=== PATIENT | female | born 1970 | race Caucasian/White ===

== ENCOUNTER → 2017-01-14 | Day surgery (SDC) | payer OTHER ==
[~2017-01-14] VITALS: Ht 165.1 cm; Wt 84.0 kg
[2017-01-14] VITALS (12 sets, daily range): BP systolic 89–103; BP diastolic 42–68; PULSE 50–76; RESP 14–19; O2SAT 95–100
[~2017-01-14] MED LIST: Bupivacaine-MPF 0.5% W/EPI 30 mL Inj INFILTRATE ONE; Dexamethasone 4 mg/mL Inj IVPUSH PRN; Dexamethasone 4 mg/mL Inj ONE; EPHEDrine Sulfate 50 mg/mL Inj IVPUSH PRN; EPHEDrine/NS 5 mg/mL 5 mL Syringe ONE; Glycopyrrolate 0.2 MG/ML 1mL Inj ONE; HYDROmorphone 1 mg/mL Inj IVPUSH PRN; Lactated Ringer's 1,000 ML IV ONE; Lactated Ringer's 1,000 ML IV SCH; Lactated Ringer's 500 ML IV PRN; MetoCLOpramide 5 mg/mL 2 mL Inj IVPUSH PRN; MetoCLOpramide 5 mg/mL 2 mL Inj ONE; NORE-101 PO; Neostigmine 1 mg/mL 10 mL Inj ONE; Ondansetron 2 mg/mL 2 mL Inj IVPUSH PRN; Phenylephrine 10,000 mCg/mL Inj IVPUSH PRN; Propofol 10,000 mCg/mL 20 mL Inj ONE; Rocuronium 10 mg/mL 5 mL Inj ONE; VALA500T38 PO; fentaNYL-PF 50 mCg/mL 2 mL Inj IVPUSH PRN; fentaNYL-PF 50 mCg/mL 2 mL Inj ONE; oxyCODONE-Acetamin 5-325 mg Tablet PO PRN
[2017-01-14] MEDS: Lactated Ringer's 1,000 ML IV SCH ×2 (05:31→07:32)
--- NOTE | 2017-01-14 08:49 | PCM.ANEP1 ---
Post Anesthesia PACU Phase 1 Assessment Vital Signs Vital Signs Date Time Temp Pulse Resp B/P Pulse Ox O2 Delivery O2 Flow Rate FiO2 01/14/17 08:45 36.2 52 18 91/54 95 Room Air 01/14/17 08:40 50 18 93/42 95 Room Air 01/14/17 08:35 57 17 95/46 97 Room Air 01/14/17 08:30 58 16 101/58 100 Room Air 01/14/17 08:27 36.4 58 19 97/57 100 Room Air 01/14/17 05:51 36.5 75 16 103/68 96 Room Air Anesthetic Administered: GA Level of Alertness: Awake, talking SOLANO's with Equal Strength: Yes Pain: No Nausea or Vomiting: No CV Function & Hydration Stable: Yes Airway Device: Oxygen Delivery: Room Air Lungs: Clear to Auscultation Dermatome Level: Full Sensation PACU Phase 2 Assessment Complications: No Patient Instructions Provided: N/A Elia Kwong MD Jan 14, 2017 08:49
--- NOTE | 2017-01-14 11:24 | DIS ---
[address] [address] DISCHARGE SUMMARY PATIENT: CIERRA MCKINNEY : 1970 MR#: [id number] ADMIT: 01/14/2017 JOB ID: [id number] DIS: HISTORY AND HOSPITAL COURSE: This is a 46-year-old female, who came in today for a scheduled laparoscopy and bilateral salpingectomy. The procedure was not complicated. The patient was transferred to recovery room after procedure. Plan to discharge the patient home. The patient was instructed that if there is heavy vaginal bleeding, severe abdominal pain, foul-smelling discharge, or fever more than 100.4, she needs to call the office or go to the ED for evaluation. Motrin 600 mg 30 pills prescribed and Percocet 5/325, 10 pills prescribed for postop pain. Patient is instructed to make an appointment two weeks after the procedure for followup.
--- NOTE | 2017-01-14 11:59 | OP ---
[address] [address] OPERATIVE REPORT PATIENT: CIERRA MCKINNEY : 1970 MR#: [id number] ADMIT: 01/14/2017 JOB ID: [id number] DATE OF SURGERY: 01/14/2017 SURGEON: Wendy Mccoy MD. FINISHED CLOTH CHECKER: Dano Alba MD for this procedure LORRY WEIGHER physician investigative assistant is necessary for completing the procedure for exposure. PREOPERATIVE DIAGNOSIS(ES): A 46-year-old female, desire for permanent sterilization. POSTOPERATIVE DIAGNOSIS(ES): A 46-year-old female, desire for permanent sterilization. INDICATION FOR PROCEDURE: A 46-year-old female, desire for permanent sterilization. This is a 46-year-old female, previously using OCD for control and she strongly desires for permanent sterilization with bilateral salpingectomy. She understood there is a long reversible method available, but the tubal ligation was the method she decided to have. She understood there is risk of infection, bleeding, injury to the organs around including the ovaries, uterus, bladder, ureters, major vessels and nerves and bowels. Informed consent signed. PROCEDURE IN DETAIL: The patient was transferred to the operating room. After anesthesia was noted to be adequate, she was placed in dorsal lithotomy position. She was prepared and draped in normal sterile fashion. Speculum inserted to vagina to expose the cervix. The cervix was grasped by single tooth tenaculum. An Everman manipulator was inserted for uterine manipulation. At this time, a Veress needle was inserted. After it confirmed appropriate insertion, CO2 gas inserted to perform pneumoperitoneum and then the Veress needle removed. A 5 mm incision placed at umbilicus and 5 mm trocar inserted. The pelvis and the abdominal cavity was examined with no abnormal findings. The uterus was normal size. Bilateral ovaries and tubes have no abnormal finding. Then two 5 mm incisions were placed at the bilateral lower abdomen and another two 5 mm trocar inserted. Then at this time, the right tube was grasped and then the LigaSure instrument was used to coagulate the cut and of the left salpinx and then the right tube was removed. The same procedure was performed at the left side. After procedure hemostasis confirmed. All instruments removed from the abdomen and the 5 mm incision was closed by 4-0 Monocryl subcutaneously. The patient tolerated the procedure well. All instrument, needles, laps and gauzes counted correct twice. The patient was transferred to recovery room in a stable condition.
--- NOTE | 2017-01-17 13:08 | PCM.HPANE ---
Patient Data Surgeon Admitting Provider: Attending Provider:Wendy Mccoy MD Primary Care Physician:Teresa Other Provider:Emre Alejo Anesthesia Reason for Visit Family Planning Ht/WT & BMI Height (Feet): 5 Height (Inches): 5.00 Weight (Kilograms): 84.0 Body Mass Index 30.00 Allergies Coded Allergies: Penicillins (Verified Allergy, Severe, HIVES, SOB, 01/07/17) Sulfa (Sulfonamide Antibiotics) (Verified Allergy, Severe, HIVES, 01/07/17) oxycodone (Verified Allergy, Unknown, UNKNOWN, 01/07/17) hydrocodone (Verified Adverse Reaction, Severe, N&V, 01/07/17) Past Anesthesia History Anesthesia History: Denies:: Anesthesia Reactions Diabetes History Hx Diabetes?: No MRSA MRSA: No Medications Home Meds Incl Beta Leena: No Reported Medications Valacyclovir 500 Mg Zcilpy992 Mg PO BID PRN PRN X 3 DAYS 01/07/17 Noreth A-Et Estra/Fe Fumarate (Loestrin Fe 1.5-30 Tablet)1 Each Tablet1 Each PO DAILY #1 PKG Ref 0 01/07/17 History History of ENT Problems?: No HEENT History: Denies:: Abnormal Airway Cataracts Difficult Intubation Dysphagia Glaucoma Hearing Problem Sinus Problem TMJ Denture Type: None Partial- Lower Teeth Condition: Within Normal Limits Hx of Heart Problems?: No Cardiovascular History: Denies:: Heart Murmur Hypertension Hx of Respiratory Problem?: No Respiratory History: Denies:: Use of C-PAP Machine Hx Neurologic Problems?: Yes Neurological History: Positive for:: Headaches Other Neurological Pertinent: HX OF HSV Hx of GI Problems?: Yes Hx of Problems?: No Female Hx: Denies:: Currently Skin History: Positive for:: History Skin Disorders? (C/OF HAIR LOSS) Denies:: Pressure Ulcers Hx Musculoskeletal Problems?: No Hx of Psycho/Social Problems?: No Hx Surgeries?: Yes (COLPOSCOPY W/ BX & ENDOCERVICAL CURETTAGE) Hx Any Other Health Problems?: Yes Other History: Denies:: Cancer Endocrine Disease Hospitalization Thyroid Disease History Blood Transfusions: Denies:: Blood Transfusions Hx Diabetes: No Have You Smoked inLast 12 mo: No Stop/Bang S-Snoring: Do You Snore Loudly: No T-Tired: feel tired, fatigued: No O-Obsered: Observed not breath: No P-Blood Pressure: treated: No B- Body Mass Index > 35 kg/m2: No A- Age over 50: No N- Neck Large Circumference: No G- Gender Male: No LEAH Total Score: 0 Risk Assessment Category Category 1A: Patient has history of documented sleep apnea, and HAS NOT received any narcotic, sedative or anesthesia administration during this stay. Category 1B: Patient has history of documented sleep apnea, and HAS received any narcotic , sedative or anesthesia administration during this stay Category 2: Patient has SUSPECTED Obstructive Sleep Apnea, and HAS received any narcotic , sedative or anesthesia administration during this stay. Category 3: Patient has SUSPECTED Obstructive Sleep Apnea and HAS NOT received narcotic, sedative or anesthesia administration during this stay. Category 4: Outpatient in Procedural Areas with known sleep apnea or who screen positive for High Risk via the STOP/BANG questionnaire. Exam Exam Vital Signs Vital Signs Date Time Temp Pulse Resp B/P Pulse Ox O2 Delivery O2 Flow Rate FiO2 01/14/17 05:51 36.5 75 16 103/68 96 Room Air General Appearance: Alert, Oriented X3, Cooperative, No Acute Distress HEENT/AIRWAY: MP 2 Lungs: Clear to Auscultation, Normal Air Movement Heart: Exam Unremarkable, Regular Rate/Rhythm, No Murmurs/Rubs/Gallops Meds/Labs/Diagnostics Admission Meds Current Medications Lactated Ringer's (Lr) 1,000 ml @ 120 mls/hr [id number] IV Last administered on t 05:31; Start 01/14/17 at 05:00; Stop 01/14/17 at 13:19 Plan Impression Patient chart reviewed, patient interviewed and anesthestic plan with risks, benefits, and alternatives discussed, and informed consent obtained. ASA Physical Status: ASA2 Mod Systemic Disease Anesthetic Plan: GA Bene/Risks/Altern/Consents: Yes HP Complete Prior to Induction: Yes Elia Kwong MD Jan 14, 2017 07:36
--- NOTE | 2017-01-20 09:33 | PATH ---
SURGICAL PATHOLOGY Attending Physician:Wendy Mccoy MD CASE STATUS: Signed Out PATIENT NAME: CIERRA MCKINNEY PID: [id number] : 1970 DATE COLLECTED:01/14/2017 17:36 SPECIMEN: 1: Fallopian Tube, Sterilization 2: Fallopian Tube, Sterilization CLINICAL HISTORY: FAMILY PLANNING 1). RIGHT FALLOPIAN TUBE 2). LEFT FALLOPIAN TUBE FINAL DIAGNOSIS: 1.RIGHT FALLOPIAN TUBE: SEGMENT OF FALLOPIAN TUBE WITH NO PATHOLOGIC ALTERATIONS. 2.LEFT FALLOPIAN TUBE: SEGMENT OF FALLOPIAN TUBE WITH NO PATHOLOGIC ALTERATIONS. ICD10 Z30.2 GROSS DESCRIPTION: Received two formalin-filled containers, both labeled with the patient' s name: 1. In a container labeled "RT fallopian tube", the specimen consists of a balderrama-finch, cylindrical-shaped, rough portion of tissue which measures 6.0 x 0.8 x 0.8 cm. The specimen is inked blue. Three field representative sections are submitted in cassette 1A. 2. In a container labeled "left fallopian tube", the specimen consists of two balderrama-finch, cylindrical-shaped portions of tissue which aggregate to 5.0 x 0.7 x 0.6 cm. The specimen is inked blue. Four field representative sections are submitted in cassette 2A. (DC:[id number]) MICRO DESCRIPTION: See diagnosis. ICD-9 CODES: CPT CODES: 1: 49804 2: 36466 Electronically Signed Out Sherly Savage MD [facility] Pathology [facility], [place] [address] Technical component performed at [facility], [facility] [address], [place], [address]
== END | disposition home or self-care (01) ==
LOC: SAS 05:28
PROVIDERS: ATTEND Obstetrics & Gynecology
DX: Z30.2 Encounter for sterilization (principal); N93.0 Postcoital and contact bleeding; N87.9 Dysplasia of cervix uteri, unspecified; Z87.891 Personal history of nicotine dependence
CPT/HCPCS: 58661; J1100; J1885; J2250; J2405; J2710; J2765; J3010; J7120